=== PATIENT | male | born 1955 | race Caucasian/White ===

== ENCOUNTER 2018-09-25 14:20 | Outpatient (CLI) | payer OTHER, SELFPAY ==
[2018-09-25] VITALS (9 sets, daily range): BP systolic 92–130; BP diastolic 51–73; PULSE 62–82; RESP 16–18; TEMP 36.1; O2SAT 96–99
--- NOTE | 2018-09-25 14:23 | DI.RAD.S_ITS ---
PROCEDURE: XR LUMBAR SPINE MIN 4V INDICATIONS: lower back pain TECHNIQUE: 5 views of the lumbar spine were acquired. COMPARISON: [facility], RG, XR L-SPINE 4-6V, 09/09/2018, 15:03. FINDINGS: Bones: No fracture or focal osseous destruction. Grade 1 anterolisthesis of L5 on S1. Diffuse facet arthropathy. Trace retrolisthesis of L3 on L4. Partially visualized lateral curvature of the spine. Moderate narrowing of the L3-L4 disc space. There is mild narrowing of the L2-L3 disc space. Minimal anterior wedging of T12 which could be physiologic. Soft tissues: Overlying bowel gas pattern is normal. No suspicious soft tissue calcifications. Vascular calcifications projecting in the aorta Oblique images: No pars defects. IMPRESSION: Grade 1 anterolisthesis of L5 on S1 and mild multilevel lumbar disc degeneration with facet arthropathy. No interval change Dictated by: Aly Hopkins M.D. on 09/25/2018 at 16:29 Approved by: Aly Hopkins M.D. on 09/25/2018 at 16:31
--- NOTE | 2018-09-25 14:23 | DI.RAD.S_ITS ---
PROCEDURE: PAIN L INTERLAMINAR/CAUDAL INJ INDICATIONS: INTERVERTEBRAL DISC DISPLACEMENT FINDINGS: Fluoroscopic spot filming was performed to verify placement of spinal needles at the L3-L4 level(s), as labeled on the films. Appropriate location(s) of the needle tip(s) was confirmed by injection of iodinated contrast. Dictated by: Aly Hopkins M.D. on 09/25/2018 at 16:32 Approved by: Aly Hopkins M.D. on 09/25/2018 at 16:36
[2018-09-25] MEDS: MIDAZOLAM 5 MG/5 ML VIAL IV (15:11)
[2018-09-25] MEDS: BUPIVACAINE 0.25% (PF) VIAL 2 ML INJ (15:16)
[2018-09-25] MEDS: methylPREDNISolone acetate 80 MG/ML VIAL INJ (15:17)
[2018-09-25] MEDS: DEXAMETHASONE 10 MG/ML VIAL 20 MG INJ (15:17)
[2018-09-25] MEDS: IOPAMIDOL 15 ML VIAL 3 ML INJ (15:17)
--- NOTE | 2018-09-25 15:22 | P.PCN_ITS ---
Procedures Date/Time Date of procedure: 09/25/18 Time of procedure: 15:21 General Procedure description: POST OP DIAGNOSIS 1. HNP WITH RADICULAR FEATURES, 2. MULTILEVEL CENTRAL STENOSIS, PROCEDURES 1. FLUORSCOPICALLY GUIDED CONTRAST CONTROLLED INTERLAMINAR EPIDURAL STEROID INJECTION - L3/4 PHYSICIAN: Dennys Uribe, INDICATIONS Murphy is referred for treatment of HNP with Right LE symptoms. FINDINGS Multilevel Central Spinal Stenosis with Nerve Root Compression DESCRIPTION OF PROCEDURE Fluoroscopically guided, contrast-controlled L3/4 translaminar epidural steroid injection. Following denial of allergy and review of potential side effects and complications, including, but not necessarily limited to, infection, allergic reaction, local tissue breakdown, temporary as well as permanent nerve injury, paralysis, stroke and possible , the patient indicated that the patient understood and agreed to proceed. An informed consent document was signed by the patient, witnessed by a nurse, and placed in the patient's chart. Additionally, other treatment options including modalities, medications, and physical therapy were reviewed with the patient. After review of previous anaesthesic history and IV conscious sedation the patient was deemed safe to proceed with todays procedure with IV conscious sedation as ASA class II designation. Safety time-out was performed to confirm patient ID, procedure to be performed and site of procedure. IV sedation was accomplished with a combination of 3mg was administered by the RN after DO order , titrated to patient comfort during the course of the procedure while the patient remained responsive to all verbal commands. In the prone position, following sterile prep and drape of the lumbar region, the L3/4 translaminar space was identified fluoroscopically. The skin was anesthetized via a 25-gauge, 1.5-inch needle with 1% lidocaine solution. At this point, a 22-gauge short bevel spinal needle was atraumatically introduced and advanced under fluoroscopic guidance into the region of the L3/4 translaminar space. Depth was confirmed on lateral view. Radiological data, including multiple fluoroscopic views of the lumbar spine, reveal a spinal needle at the L3/4 translaminar space. Lateral views then show placement of the needle in the epidural space. Subsequent views show contrast material flowing superiorly and inferiorly in the epidural space. No vascular or intrathecal uptake is observed. At this point, using loss of resistance technique with saline and air, the epidural space was entered. This was confirmed following negative aspiration with injection of approximately 1.5 cc of Isovue 200, showing excellent epidural flow without vascular or intrathecal uptake. At this point, 1 cc of 1 % lidocaine solution combined with 3 cc or 20 mg of dexamethasone and 80mg Depo medrol was injected without incident. The patient tolerated the procedure well without signs or symptoms of complications prior to transfer to the recovery area continued monitoring without incident. The patient was then transferred to the recovery area where they were observed for an appropriate period of time after the injection. The patient reported a VAS score of 6 prior to the procedure and a post- procedure VAS of 0. Total Fluoroscopy Time: 11.8 seconds Total Conscious Sedation Time: 24min POST OP INSTRUCTIONS The patient was provided a Pain Log to continue to record their response to the target-specific procedure prior to follow-up visit with their referring physician. Additionally, specific post-injection care instructions and a contact number to our office were provided if concerns arise regarding possible complications associated with the procedure are suspected. Dennys Uribe, Complications: none
--- NOTE | 2018-09-25 15:36 | PC.NURSE ---
pt returned from procedure room via wheelchair, alert and oriented, able to move from w/c to chair. Resumed monitoring from Nancy VIDAL.
== END 2018-09-25 16:08 ==
PROVIDERS: Visit Provider Physical Medicine & Rehabilitation
DX: M51.16 Intervertebral disc disorders with radiculopathy, lumbar region (principal); M48.061 Spinal stenosis, lumbar region without neurogenic claudication; M47.27 Other spondylosis with radiculopathy, lumbosacral region
CPT/HCPCS: 62323; 72110; 99152; J1040; J1100; J2250

== ENCOUNTER 2018-12-11 09:42 | Outpatient (CLI) | payer OTHER, SELFPAY ==
[2018-12-11] VITALS (8 sets, daily range): BP systolic 135–147; BP diastolic 50–85; PULSE 63–77; RESP 16–18; TEMP 36.2; O2SAT 96–99
--- NOTE | 2018-12-11 09:45 | DI.RAD.S_ITS ---
PROCEDURE: PAIN L/S FACET INJ/BLK 1ST RAINA COMPARISON: None. INDICATIONS: RADICULOPATHY FINDINGS: Facet localization needles have been placed bilaterally at L4-5 and L5-S1-4 facet steroid injection. IMPRESSION: Successful bilateral lower lumbosacral spine facet needle tip localization for steroid injections bilaterally. Dictated by: Uri Ng M.D. on 12/11/2018 at 13:11 Approved by: Uri Ng M.D. on 12/11/2018 at 13:12
[2018-12-11] MEDS: MIDAZOLAM 5 MG/5 ML VIAL IV (10:39)
[2018-12-11] MEDS: fentaNYL 100 MCG/2 ML INJ 50 MCG IV (10:46)
[2018-12-11] MEDS: LIDOCAINE 1% 20 ML INJ 10 ML INJ (10:47)
[2018-12-11] MEDS: BUPIVACAINE 0.5% (PF) VIAL 2 ML INJ (10:47)
[2018-12-11] MEDS: IOPAMIDOL 15 ML VIAL 3 ML INJ (10:47)
[2018-12-11] MEDS: BETAMETHASONE 30 MG/5 ML MDV 12 MG INJ (10:48)
--- NOTE | 2018-12-11 10:51 | PC.NURSE ---
ASSISTING PT OFF TABLE AND TRANSPORTING TO POST PROC AREA IN STABLE CONDITION
--- NOTE | 2018-12-11 10:57 | P.PCN_ITS ---
Procedures Date/Time Date of procedure: 12/11/18 Time of procedure: 10:56 General Procedure description: PREOP DIAGNOSIS 1. FACET ARTHROPATHY 2. AXIAL LBP 3. MULTILEVEL DDD POST OP DIAGNOSIS 1. FACET ARTHROPATHY 2. AXIAL LBP 3. MULTILEVEL DDD PROCEDURES 1. FLUORSCOPICALLY GUIDED CONTRAST CONTROLLED FACET JOINT INJECTIONS BILATERAL L4/5, L5/S1 PHYSICIAN: Dennys Uribe, DO INDICATIONS [facility] is referred for treatment of Axial LBP FINDINGS Multilevel Facet Arthropathy with Clinically significant axial LBP DESCRIPTION OF PROCEDURE Fluoroscopically guided, contrast-controlled bilateral L4/5, L5/S1 facet joint injections. Following denial of allergy and review of potential side effects and complications, including, but not necessarily limited to, infection, allergic reaction, local tissue breakdown, stroke, temporary or permanent nerve injury, paralysis, and possible , the patient indicated that the patient understood and agreed to proceed. An informed consent document was signed by the patient, witnessed by a nurse, and placed in the patient's chart. Additionally, other treatment options including medications, modalities, and physical therapy were reviewed with the patient. After review of previous anaesthesic history and IV conscious sedation the patient was deemed safe to proceed with todays procedure with IV conscious sedation as ASA class II designation. Safety time-out was performed to confirm patient ID, procedure to be performed and site of procedure. IV sedation was accomplished with a combination of 3mg of Versed and 50mcg of Fentanyl was administered by the RN after DO order, titrated to patient comfort during the course of the procedure while the patient remained responsive to all verbal commands In the prone position, following sterile prep and drape of the lumbar region, the posterior aspect of the L4/5, L5/S1 facet joints were identified fluoroscopically. The skin was anesthetized via a 25-gauge 1.5-inch needle with 1% lidocaine solution into the corresponding facet joints. At this point, a 22- gauge 3.5-inch spinal needle was atraumatically introduced and advanced under fluoroscopic guidance into the corresponding facet joints. Following negative aspiration, injections of approximately 0.2-cc of Isovue 200 confirmed interarticular placement without vascular uptake. The identical procedure was then performed at the L4/5, L5/S1 facet joints on the left. Radiological data, including multiple fluoroscopic views of the lumbosacral spine, reveal a spinal needle at the L4/5, L5/S1 facet joints bilaterally. Subsequent views show flow of contrast material both superiorly and inferiorly within the joint space without vascular or intrathecal uptake. At this point, a total of 0.5 cc including a mixture of 0.25cc Marcaine and 0.25cc betamethasone was injected without complication into each of the corresponding facet joints. The patient tolerated the procedure well without signs or symptoms of complications prior to transfer to the recovery area continued monitoring without incident. The patient was then transferred to the recovery area where they were observed for an appropriate period of time after the injection. The patient reported a VAS score of 7 prior to the procedure and a post- procedure VAS of 0. Total Fluoroscopy Time: 20.3 seconds Total Conscious Sedation Time: 24min POST OP INSTRUCTIONS The patient was provided a Pain Log to continue to record their response to the target-specific procedure prior to follow-up visit with their referring physician. Additionally, specific post-injection care instructions and a contact number to our office were provided if concerns arise regarding possible complications associated with the procedure are suspected. Dennys Uribe, Complications: none
--- NOTE | 2018-12-11 11:11 | PC.NURSE ---
pt returned from procedure room awake and alert. Able to move from W/C to chair with standby assist. Resumed monitoring from Nancy VIDAL.
== END 2018-12-11 11:37 ==
LOC: RAD 09:43
PROVIDERS: Visit Provider Physical Medicine & Rehabilitation
DX: M47.816 Spondylosis without myelopathy or radiculopathy, lumbar region (principal); M47.817 Spondylosis without myelopathy or radiculopathy, lumbosacral region; M51.36 Other intervertebral disc degeneration, lumbar region; M51.37 Other intervertebral disc degeneration, lumbosacral region; M54.5 Low back pain
CPT/HCPCS: 64493; 64494; 99152; J0702; J2250; J3010

== ENCOUNTER 2019-02-06 13:44 | Outpatient (CLI) | payer OTHER, SELFPAY ==
[2019-02-06] VITALS (7 sets, daily range): BP systolic 123–138; BP diastolic 62–78; PULSE 59–72; RESP 16; TEMP 36.2; O2SAT 97–98
--- NOTE | 2019-02-06 13:45 | DI.RAD.S_ITS ---
PROCEDURE: PAIN L/SI FACET INJ/BLK 1STL INDICATIONS: RADICULOPATHY FINDINGS: Fluoroscopic spot filming was performed to verify placement of spinal needles at the level(s) as labeled on the films. Appropriate location(s) of the needle tip(s) was confirmed by injection of iodinated contrast. IMPRESSION: Fluoroscopy for pain management. Dictated by: Luann Castillo M.D. on 02/06/2019 at 16:40 Approved by: Luann Castillo M.D. on 02/06/2019 at 16:40
[2019-02-06] MEDS: MIDAZOLAM 5 MG/5 ML VIAL IV (14:52)
[2019-02-06] MEDS: IOPAMIDOL 15 ML VIAL 3 ML INJ (14:53)
[2019-02-06] MEDS: BUPIVACAINE 0.5% (PF) VIAL 2 ML INJ (14:53)
[2019-02-06] MEDS: BETAMETHASONE 30 MG/5 ML MDV 12 MG INJ (14:54)
[2019-02-06] MEDS: LIDOCAINE 1% 20 ML INJ 10 ML INJ (14:54)
--- NOTE | 2019-02-06 15:02 | PC.NURSE ---
Pt tolerated procedure well. Able to get off the table with standby assist. Transferred pt to pre procedure room awake and alert via wheelchair for continued monitoring with Nancy VIDAL.
--- NOTE | 2019-02-06 15:04 | PM.PROC.1 ---
Procedures Date/Time Date of procedure: 02/06/19 Time of procedure: 15:04 General Procedure description: POST OP DIAGNOSIS 1. FACET ARTHROPATHY PROCEDURES 1. Right L4, L5 and S1 MB BLOCKS PHYSICIAN: DO REBECCA Reid [facility] is referred for treatment of Right Axial LBP. DESCRIPTION OF PROCEDURE Fluoroscopically guided, contrast-controlled right L4, L5 and S1 medial branch blocks with 0.5cc of 0.5% Marcaine. Following review of allergy and review of potential side effects and complications, including, but not necessarily limited to, infection, allergic reaction, local tissue breakdown, nerve injury, paralysis, stroke and possible , the patient indicated that the patient understood and agreed to proceed. An informed consent document was signed by the patient, witnessed by a nurse, and placed in the patient's chart. After review of previous anaesthesic history and IV conscious sedation the patient was deemed safe to proceed with todays procedure with IV conscious sedation as ASA class II designation. Safety time-out was performed to confirm patient ID, procedure to be performed and site of procedure. IV sedation was accomplished with a combination of 2mg of Versed was administered by the RN after DO order, titrated to patient comfort during the course of the procedure while the patient remained responsive to all verbal commands In the prone position, following sterile prep and drape of the lumbar region, the right L4, L5 and S1 anatomical location of the medial branch of the dorsal ramus was identified fluoroscopically. Subsequently an anesthetic skin wheal using 1% lidocaine solution was initiated at each of the anatomical spots. Subsequently then a 22-gauge 3.5-inch spinal needle was atraumatically introduced and advanced under fluoroscopic guidance at each of the corresponding sites at the right L4, L5 and S1 MB. After negative aspiration, 0.2 cc of Isovue 200 was injected, confirming placement without vascular or intrathecal uptake. Subsequently then 0.5 cc of 0.5% Marcaine solution was injected at each of the corresponding sites at the right L4, L5 and S1 medial branch locations. The patient tolerated the procedure well without signs or symptoms of complications. The procedure tolerated the procedure well without signs or symptoms of complications prior to transfer to the recovery area continued monitoring without incident. Post-procedure, the patient was monitored initiating provocative activities to measure the amount of relief from block of the facetogenic pain. The patient reported a VAS of 7 prior to the procedure and a post-procedure VAS of 1. It has been a pleasure to assist in the diagnostic and therapeutic care of your patient. Total Fluoroscopy Time: 24.8 seconds Total Conscious Sedation Time: 24min POST OP INSTRUCTIONS The patient was provided with a Pain Log to complete over the next several hours and subsequent days prior to the patient's follow up with the ordering physician. If the patient has servomechanism designer relief to the solution applied, then they may be a candidate for medial branch rhizotomy. The patient is aware, was provided, once again, with a Pain Log and will follow up with the referring physician for review and clinical correlation Dennys Uribe DO Complications: none
--- NOTE | 2019-02-06 15:17 | PC.NURSE ---
ACCEPTED CARE OF PT IN POST PROC AREA IN STABLE CONDITION
== END 2019-02-06 16:07 | disposition home or self-care (01) ==
LOC: RAD 13:45
PROVIDERS: Visit Provider Physical Medicine & Rehabilitation
DX: M47.816 Spondylosis without myelopathy or radiculopathy, lumbar region (principal); M47.817 Spondylosis without myelopathy or radiculopathy, lumbosacral region
CPT/HCPCS: 64493; 64494; 99152; J0702; J2250; J3010

== ENCOUNTER 2019-07-03 07:24 | Outpatient (CLI) | payer OTHER, SELFPAY ==
[2019-07-03] VITALS (10 sets, daily range): BP systolic 118–159; BP diastolic 51–84; PULSE 57–77; RESP 16; TEMP 36.1; O2SAT 96–99
--- NOTE | 2019-07-03 08:06 | DI.RAD.S_ITS ---
PROCEDURE: PAIN L/S MED/LAT N RFA INDICATIONS: RADICULOPATHY FINDINGS: Fluoroscopic spot filming was performed to verify placement of spinal needles at the L4, L5, S1 level(s), as labeled on the films. Appropriate location(s) of the needle tip(s) was confirmed by injection of iodinated contrast. Dictated by: Aly Hopkins M.D. on 07/03/2019 at 10:33 Approved by: Aly Hopkins M.D. on 07/03/2019 at 10:33
[2019-07-03] MEDS: MIDAZOLAM 5 MG/5 ML VIAL IV (08:51)
[2019-07-03] MEDS: fentaNYL 100 MCG/2 ML INJ 50 MCG IV (08:52)
[2019-07-03] MEDS: LIDOCAINE 1% 20 ML 10 ML INJ (09:00)
[2019-07-03] MEDS: BUPIVACAINE 0.5% (PF) VIAL 2 ML INJ (09:00)
[2019-07-03] MEDS: BETAMETHASONE 30 MG/5 ML MDV 12 MG INJ (09:01)
--- NOTE | 2019-07-03 09:08 | PC.NURSE ---
ASSISTING PT OFF TABLE AND TRANSPORTING TO POST PROC AREA IN STABLE CONDITION.
--- NOTE | 2019-07-03 09:16 | P.PCN_ITS ---
Procedures Date/Time Date of procedure: 07/03/19 Time of procedure: 09:16 General Procedure description: PREOP DIAGNOSIS 1. RECALCITRANT FACET ARTHROPATHY, POST OP DIAGNOSIS 1. RECALCITRANT FACET ARTHROPATHY, PROCEDURES 1. RIGHT L4 AND L5 MEDIAL BRANCH RADIOFREQUENCY NEUROTOMY AND RIGHT S1 DORSAL RAMUS BRANCH RADIOFREQUENCY NEUROTOMY SURGEON: Dennys Uribe, DO FERNANDEZ Murphy is referred by for treatment of facet arthropathy. DESCRIPTION OF PROCEDURE Right L4 and L5 medial branch radiofrequency neurotomy and right S1 dorsal ramus branch radiofrequency neurotomy under fluoroscopy with conscious sedation. The patient is well known to this clinic having undergone previous facet injections with good but temporary relief. The patient has experienced appropriate, concordant relief with previous facet and median branch blocks but the patient's pain has been recalcitrant to further conservative measures. Therefore, based upon the patient's relief and persistent symptoms, the patient is considered an appropriate candidate for facet rhizotomy. All of the patient's questions regarding the risks versus benefits of the procedure, including, but not limited to, bleeding, infection, temporary as well as lasting nerve injury, paralysis, stroke, and , as well treatment alternatives were answered to satisfaction. After review of previous anaesthesic history and IV conscious sedation the patient was deemed safe to proceed with todays procedure with IV conscious sedation as ASA class II designation. Safety time-out was performed to confirm patient ID, procedure to be performed and site of procedure. IV sedation was accomplished with a combination of 3mg of Versed and 50mcg of Fentanyl was administered by the RN after DO order, titrated to patient comfort during the course of the procedure while the patient remained responsive to all verbal commands. After obtaining informed consent, denial of pertinent drug allergies, as well as being made aware of the potential risks of bleeding, infection, spinal cord trauma, paralysis, temporary and permanent nerve damage, seizure, stroke, and possible , the patient was brought to the fluoroscopy suite and positioned prone on the fluoroscopy table. The lumbar region was prepped with Betadine and covered with a fenestrated drape in the usual sterile fashion. Appropriate monitors applied including pulse oximeter, pulse, and blood pressure for regular monitoring throughout the procedure. After local infiltration using 1% lidocaine, under fluoroscopic guidance, a 10- cm RF insulated needle with a 10-mm active tip was positioned parallel to the junction of the right sacral ala and the superior articulating process where the S1 dorsal ramus resides. Needle placement was confirmed with sensory stimulation at 50 Hz, with motor stimulation of .5v on the right which produced local stimulation without radicular component. The stimulation was then increased to 1.5v with, once again, only local multifidus stimulation without radicular component. This was then followed by two discreet lesions performed at 80 degrees Celsius for 90 seconds each. The needle was then removed and the identical procedure was performed along the length of the right L5 medial branch with motor stimulation at .7v on the right. The identical procedure was once again performed along the length of the right L4 medial branch with motor stimulation of .5v on the right. The patient tolerated the procedure well without signs or symptoms of complications prior to transfer to the recovery area continued monitoring without incident. The patient was then transferred to the recovery area where they were observed for an appropriate period of time after the injection. The patient was then transferred to the recovery area where they were observed for an appropriate period of time after the injection. The patient reported a VAS score of 9 prior to the procedure and a post- procedure VAS of 0. Total Fluoroscopy Time: 31 seconds Total Conscious Sedation Time: 45min POST OP INSTRUCTIONS The patient was provided a Pain Log to continue to record the patient's response to the target-specific procedure prior to the patient's follow-up visit with the referring physician. Additionally, specific post-injection care instructions and a contact number to our office were provided if concerns arise regarding possible complications associated with the procedure are suspected. Dennys Uribe DO Complications: none
== END 2019-07-03 09:40 ==
PROVIDERS: Visit Provider Physical Medicine & Rehabilitation
DX: M47.817 Spondylosis without myelopathy or radiculopathy, lumbosacral region (principal); M47.816 Spondylosis without myelopathy or radiculopathy, lumbar region
CPT/HCPCS: 64494; 64635; 64636; 99152; J0702; J2250; J3010

== ENCOUNTER → 2019-11-11 08:40 | Outpatient (CLI) | payer OTHER, SELFPAY ==
--- NOTE | 2019-11-11 08:41 | DI.RAD.S_ITS ---
PROCEDURE: XR CERVICAL SPINE 4V OR 5V INDICATIONS: RUE parsthesias TECHNIQUE: 5 total views of the cervical spine were acquired, including bilateral oblique views. COMPARISON: None. FINDINGS: Bones: No fractures or dislocations to the superior T2 level. There is straightening of the normal cervical lordosis. There is moderate disc space narrowing at C5-C6 and moderate to severe disc space narrowing at C6-C7. Endplate irregularity and sclerosis are seen can be seen, which is worst at the C6-C7 level. Partially bridging anterior osteophytes are seen at C6-C7. On oblique images, there is moderate to severe neural foraminal narrowing seen on the left at the C3-C4 and C6-C7 levels, with mild neural foraminal narrowing seen elsewhere. On the right, there is moderate to severe neural foraminal narrowing seen at C3-C4 and C5-C6, with moderate disc space narrowing at C6-C7. Soft tissues: No prevertebral soft tissue swelling. The visualized lung apices are unremarkable. IMPRESSION: Cervical spine degenerative changes are seen, which are worst at the C6-C7 level. Dictated by: Christiano Manzo M.D. on 11/11/2019 at 8:28 Approved by: Christiano Manzo M.D. on 11/11/2019 at 8:31
== END ==
PROVIDERS: Visit Provider Physical Medicine & Rehabilitation
DX: M47.22 Other spondylosis with radiculopathy, cervical region (principal); R20.2 Paresthesia of skin
CPT/HCPCS: 72050

== ENCOUNTER → 2020-05-15 09:08 | Outpatient (CLI) | payer OTHER, SELFPAY ==
[2020-05-16 15:44] LABS: COVID19 Sendout Not Detected (Not Detect)
== END ==
PROVIDERS: Visit Provider Physician Assistant
DX: Z11.59 Encounter for screening for other viral diseases (principal)
CPT/HCPCS: 87635

== ENCOUNTER 2020-05-18 14:25 | Outpatient (CLI) | payer OTHER, SELFPAY ==
[2020-05-18] VITALS (8 sets, daily range): BP systolic 119–171; BP diastolic 74–92; PULSE 69–76; RESP 12–18; TEMP 36.3; O2SAT 97–100
--- NOTE | 2020-05-18 14:27 | DI.RAD.S_ITS ---
PROCEDURE: PAIN C/T INTERLAMINAR INJECT INDICATIONS: CERVICAL RADICULOPATHY COMPARISON: [facility], CR, XR CERVICAL SPINE 4V OR 5V, 11/11/2019, 8:39. [facility], [facility], MRI C-SPINE W/O CONTRAST, 03/12/2020, 15:46. FINDINGS: Fluoroscopic spot filming was performed to verify placement of a spinal needle at the C6-7 level, as labeled on the films. Appropriate location(s) of the needle tip(s) was confirmed by injection of iodinated contrast. IMPRESSION: Intraprocedural examination within normal limits. Dictated by: Christiano Manzo M.D. on 05/19/2020 at 8:40 Approved by: Christiano Manzo M.D. on 05/19/2020 at 8:41
[2020-05-18] MEDS: MIDAZOLAM 5 MG/5 ML VIAL IV (15:01)
[2020-05-18] MEDS: fentaNYL 100 MCG/2 ML INJ 50 MCG IV (15:01)
[2020-05-18] MEDS: IOPAMIDOL 15 ML VIAL 3 ML INJ (15:05)
[2020-05-18] MEDS: BUPIVACAINE 0.25% (PF) VIAL 2 ML INJ (15:05)
[2020-05-18] MEDS: DEXAMETHASONE 10 MG/ML VIAL 30 MG INJ (15:05)
--- NOTE | 2020-05-18 15:22 | P.PCN_ITS ---
Date/Time/Diagnoses Date of procedure: 05/18/20 Time of procedure: 15:22 Pre-procedure diagnosis: 1. CERVICAL STENOSIS, 2. CERVICAL HNP WITH UPPER EXTREMITY RADICULAR FEATURES Post-procedure diagnosis: same Procedure Notes Procedure: 1. FLUORSCOPICALLY GUIDED CONTRAST CONTROLLED INTERLAMINAR EPIDURAL STEROID INJECTION - C6/7 TL IRENE Indications: Murphy is referred by for treatment of Cervical HNP with Upper Extremity Paresthesias. Physician: Dennys Uribe Total Fluoroscopy time (seconds): 15 Total sedation minutes: 15 Complications: none Procedure in detail & Post-procedure care: FINDINGS Cervical Stenosis due to disc deterioration and nerve root irritation and nerve root irritation DESCRIPTION OF PROCEDURE Fluoroscopically guided, contrast-controlled C6/7 translaminar epidural steroid injection with conscious sedation. Following review of allergy and review of potential side effects and complications, including, but not necessarily limited to, infection, allergic reaction, local tissue breakdown, temporary as well as permanent nerve injury, stroke, paralysis, and possible , the patient indicated that patient understood and agreed to proceed. An informed consent document was signed by the patient, witnessed by a nurse, and placed in the patient's chart. Additionally, other treatment options including modalities, medications, and physical therapy were reviewed with the patient. After review of previous anaesthesic history and IV conscious sedation the patient was deemed safe to proceed with today?s procedure with IV conscious sedation as ASA class II designation. Safety time-out was performed to confirm patient ID, procedure to be performed and site of procedure. IV sedation was accomplished with a combination of 2mg of Versed and 50mcg of Fentanyl administered by the RN after DO order, titrated to patient comfort during the course of the procedure while the patient remained responsive to all verbal commands. In the prone position, following sterile prep and drape of the cervical region, the C6/7 translaminar space was identified fluoroscopically. The skin was anesthetized via a 25-gauge 1.5-inch needle with 1% lidocaine solution. At this point, a 25-gauge, 2.5-inch short bevel spinal needle was atraumatically introduced and advanced under fluoroscopic guidance into epidural space at the C6/7 translaminar space. Depth was confirmed on lateral view. Radiological data, including multiple fluoroscopic views of the cervical spine, reveal a spinal needle at the C6/7 translaminar space. Lateral views then show placement of the needle in the epidural space. Subsequent views show contrast material flowing superiorly and inferiorly in the epidural space. DSA fluoroscopy with live contrast injection, once again, confirmed no vascular or intrathecal uptake. At this point, using loss of resistance technique with saline and air, the epidural space was entered. Following negative aspiration, injection of yue roximately 1.5 cc of Isovue-200 with live fluoroscopy in the AP view confirmed epidural flow in the epidural space without vascular or intrathecal uptake observed. Subsequently, a test dose of 1 cc of 1% lidocaine solution was injected and patient was observed for two minutes without signs or symptoms of complications, including abdominal pain, shortness of breath, bilateral upper or lower extremity weakness, nausea and vomiting, prior to steroid injection. At this point, 3cc or 30mg of dexamethasone was then injected without incident. The patient tolerated the procedure well without signs or symptoms of complications prior to being transferred to the recovery area for further monitoring, The patient was then transferred to the recovery area where they were observed for an appropriate period of time after the injection. The patient reported a VAS score of 6 prior to the procedure and a post-procedure VAS of 0. POST OP INSTRUCTIONS The patient was provided a Pain Log to continue to record their response to the target-specific procedure prior to follow-up visit with the referring provider. Additionally, specific post-injection care instructions and a contact number to our office were provided if concerns arise regarding possible complications associated with the procedure are suspected.
--- NOTE | 2020-05-18 15:46 | PC.NURSE ---
Patient recovered by YOUNG Hunt.
== END 2020-05-18 15:41 | disposition home or self-care (01) ==
PROVIDERS: PCP Chiropractor; Referring Provider Physical Medicine & Rehabilitation; Visit Provider Physical Medicine & Rehabilitation
DX: M48.02 Spinal stenosis, cervical region (principal); M50.123 Cervical disc disorder at C6-C7 level with radiculopathy
CPT/HCPCS: 62321; 99152; J1100; J2250; J3010

== ENCOUNTER → 2020-08-30 15:17 | Outpatient (CLI) | payer OTHER, SELFPAY ==
[2020-08-30 16:26] LABS: COVID19 -Nasal RAPID Negative (Negative)
== END ==
PROVIDERS: PCP Chiropractor; Visit Provider Physical Medicine & Rehabilitation
DX: Z01.812 Encounter for preprocedural laboratory examination (principal); Z20.822 Contact with and (suspected) exposure to COVID-19
CPT/HCPCS: 87635; C9803

== ENCOUNTER 2020-08-31 10:07 | Outpatient (CLI) | payer OTHER, SELFPAY ==
[2020-08-31] VITALS (9 sets, daily range): BP systolic 124–175; BP diastolic 62–96; PULSE 78–97; RESP 12–29; TEMP 36; O2SAT 92–99
--- NOTE | 2020-08-31 10:08 | DI.RAD.S_ITS ---
PROCEDURE: PAIN L/S TRANSFORAMINAL INJECT INDICATIONS: SPONDYLOSIS COMPARISON: Outside Facility, RG, IR TRANSFORAMINAL EPIDURAL / INJ, 08/23/2020, 16:02. FINDINGS: Fluoroscopic spot filming was performed to verify placement of a spinal needle at the L4-L5 level, as labeled on the films. Appropriate location of the needle tip was confirmed by injection of iodinated contrast. IMPRESSION: Intraprocedural examination within normal limits. Dictated by: Christiano Manzo M.D. on 08/31/2020 at 11:23 Approved by: Christiano Manzo M.D. on 08/31/2020 at 11:23
[2020-08-31] MEDS: fentaNYL 100 MCG/2 ML INJ 50 MCG IV (10:55)
[2020-08-31] MEDS: MIDAZOLAM 5 MG/5 ML VIAL IV (10:55)
[2020-08-31] MEDS: DEXAMETHASONE 10 MG/ML VIAL 20 MG INJ (11:05)
[2020-08-31] MEDS: IOPAMIDOL 15 ML VIAL 3 ML INJ (11:06)
[2020-08-31] MEDS: BETAMETHASONE 30 MG/5 ML MDV 6 MG INJ (11:06)
[2020-08-31] MEDS: BUPIVACAINE 0.25% (PF) VIAL 2 ML INJ (11:06)
--- NOTE | 2020-08-31 11:15 | P.PCN_ITS ---
Date/Time/Diagnoses Date of procedure: 08/31/20 Time of procedure: 11:15 Pre-procedure diagnosis: 1. FORAMINAL STENOSIS WITH LE SYMPTOMS Post-procedure diagnosis: same Procedure Notes Procedure: 1. FLUOROSCOPICALLY GUIDED CONTRAST CONTROLLED TRANSFORAMINAL EPIDURAL STEROID INJECTION - RIGHT L4/5 TFESI Indications: Murphy is referred by Dr. Griffin WICK for treatment of HNP with Right LE Symptoms Physician: Dennys Uribe Total Fluoroscopy time (seconds): 8 Total sedation minutes: 14 Complications: none Procedure in detail & Post-procedure care: FINDINGS Foraminal Nerve Root Compression secondary to disc disease and facet hypertrophy DESCRIPTION OF PROCEDURE Following review of allergy and review of potential side effects and complications, including, but not necessarily limited to, infection, allergic reaction, local tissue breakdown, stroke, temporary or permanent nerve injury, paralysis, and possible , the patient indicated that the patient understood and agreed to proceed. An informed consent document was signed by the patient, witnessed by a nurse, and placed in the patient's chart. Additionally, other treatment options including medications, modalities, and physical therapy were reviewed with the patient. After review of previous anaesthesic history and IV conscious sedation the patient was deemed safe to proceed with today?s procedure with IV conscious sedation as ASA class II designation. Safety time-out was performed to confirm patient ID, procedure to be performed and site of procedure. IV sedation was accomplished with a combination of 3mg of Versed and 50mcg of Fentanyl was administered by the RN after DO order, titrated to patient comfort during the course of the procedure while the patient remained responsive to all verbal commands In the prone position following sterile prep and drape of the lumbar region, the Right L4/5 posterior neuroforamen was identified fluoroscopically. The skin was anesthetized via a 25-gauge 1.5-inch needle with 1% lidocaine solution. At this point, a 25-gauge 3.5-inch spinal needle was atraumatically introduced and advanced under fluoroscopic guidance through the posterior Right L4/5 neuroforam en to approximately the anterior aspect of the canal. Depth was confirmed on lateral view. Following negative aspiration, injection of approximately 1.5cc of Isovue 200 under live fluoroscopy in the AP view confirmed excellent flow along the nerve root, into the epidural space without vascular or intrathecal uptake observed Radiological data, including multiple fluoroscopic views of the lumbosacral spine, reveal a spinal needle at the right L4/5 posterior neuroforamen. Subsequent views show flow of contrast material flowing superiorly and inferiorly along the nerve root confirming epidural flow. Subsequently, a test dose of 1.5 cc of 1% lidocaine solution was administered and patient was observed for two minutes for signs or symptoms of complications, including abdominal pain, shortness of breath, bilateral upper or lower extremity weakness, nausea and vomiting, prior to steroid injection. At this point, a total of 5cc or 20mg of dexamethasone and 18mg of betamethasone was in jected without incident. The procedure tolerated the procedure well without signs or symptoms of complications prior to transfer to the recovery area continued monitoring without incident. The patient was then transferred to the recovery area where they were observed for an appropriate time after the injection. The patient reported a VAS score of 9 prior to the procedure and a post-procedure VAS of 4. POST OP INSTRUCTIONS The patient was provided a Pain Log to continue to record their response to the target-specific procedure prior to follow-up visit with their referring physician. Additionally, specific post-injection care instructions and a contact number to our office were provided if concerns arise regarding possible complications associated with the procedure are suspected.
--- NOTE | 2020-08-31 11:46 | PC.NURSE ---
Pt had half empty water bottle in hand in waiting area. Dr Uribe notified. Pt unable to commit to amount of water consumed despite pre-procedure phone call asking pt to refrain from eating/drinking 2 hours prior to procedure.,
== END 2020-08-31 11:40 | disposition home or self-care (01) ==
LOC: RAD 10:08
PROVIDERS: PCP Chiropractor; Referring Provider Physical Medicine & Rehabilitation; Visit Provider Physical Medicine & Rehabilitation
DX: M48.061 Spinal stenosis, lumbar region without neurogenic claudication (principal); M51.16 Intervertebral disc disorders with radiculopathy, lumbar region
CPT/HCPCS: 64483; 99152; J0702; J1100; J2250; J3010

== ENCOUNTER → 2020-09-13 13:43 | Outpatient (CLI) | payer OTHER, SELFPAY ==
[2020-09-13 14:34] LABS: COVID19 -Nasal RAPID Negative (Negative)
== END ==
PROVIDERS: PCP Chiropractor; Visit Provider Physical Medicine & Rehabilitation
DX: Z01.812 Encounter for preprocedural laboratory examination (principal); Z20.822 Contact with and (suspected) exposure to COVID-19
CPT/HCPCS: 87635; C9803

== ENCOUNTER 2020-09-14 12:48 | Outpatient (CLI) | payer OTHER, SELFPAY ==
[2020-09-14] VITALS (8 sets, daily range): BP systolic 124–162; BP diastolic 66–94; PULSE 86–109; RESP 15–18; TEMP 36.6; O2SAT 96–99
--- NOTE | 2020-09-14 12:49 | DI.RAD.S_ITS ---
PROCEDURE: PAIN L INTERLAMINAR/CAUDAL INJ INDICATIONS: SPONDYLOSIS COMPARISON: [facility], XA, PAIN L INTERLAMINAR/CAUDAL INJ, 09/25/2018, 15:13. FINDINGS: Fluoroscopic spot filming was performed to verify placement of a spinal needle at the L4-L5 level, as labeled on the films. Appropriate location of the needle tip was confirmed by injection of iodinated contrast. IMPRESSION: Intraprocedural examination within normal limits. Dictated by: Christiano Manzo M.D. on 09/14/2020 at 13:45 Approved by: Christiano Manzo M.D. on 09/14/2020 at 13:46
[2020-09-14] MEDS: fentaNYL 100 MCG/2 ML INJ 50 MCG IV (13:46)
[2020-09-14] MEDS: MIDAZOLAM 5 MG/5 ML VIAL IV (13:46)
[2020-09-14] MEDS: methylPREDNISolone acetate 80 MG/ML VIAL INJ (13:52)
[2020-09-14] MEDS: IOPAMIDOL 15 ML VIAL 3 ML INJ (13:52)
[2020-09-14] MEDS: DEXAMETHASONE 10 MG/ML VIAL 20 MG INJ (13:52)
[2020-09-14] MEDS: BUPIVACAINE 0.5% (PF) VIAL 2 ML INJ (13:53)
--- NOTE | 2020-09-14 13:55 | P.PCN_ITS ---
Date/Time/Diagnoses Date of procedure: 09/14/20 Time of procedure: 13:55 Pre-procedure diagnosis: 1. HNP WITH RADICULAR FEATURES, 2. MULTILEVEL CENTRAL STENOSIS, Post-procedure diagnosis: same Procedure Notes Procedure: 1. FLUOROSCOPICALLY GUIDED CONTRAST CONTROLLED INTERLAMINAR EPIDURAL STEROID INJECTION - PARA RIGHT L4/5 Indications: Murphy is referred by Griffin WICK for treatment of Bilateral Foraminal Stenosis R>L LE symptoms. Physician: Dennys Uribe Total Fluoroscopy time (seconds): 4 Total sedation minutes: 7 Complications: none Procedure in detail & Post-procedure care: FINDINGS Multilevel Central Spinal Stenosis with Nerve Root Compression DESCRIPTION OF PROCEDURE Fluoroscopically guided, contrast-controlled L4/5 translaminar epidural steroid injection. Following review of allergy and review of potential side effects and complications, including, but not necessarily limited to, infection, allergic reaction, local tissue breakdown, temporary as well as permanent nerve injury, paralysis, stroke and possible , the patient indicated that the patient understood and agreed to proceed. An informed consent document was signed by the patient, witnessed by a nurse, and placed in the patient's chart. Additionally, other treatment options including modalities, medications, and physical therapy were reviewed with the patient. After review of previous anaesthesic history and IV conscious sedation the patient was deemed safe to proceed with today?s procedure with IV conscious sedation as ASA class II designation. Safety time-out was performed to confirm patient ID, procedure to be performed and site of procedure. IV sedation was accomplished with a combination of 2mg of Versed and 50mcg of Fentanyl was administered by the RN after DO order, titrated to patient comfort during the course of the procedure while the patient remained responsive to all verbal commands In the prone position, following sterile prep and drape of the lumbar region, t he L4/5 translaminar space was identified fluoroscopically. The skin was anesthetized via a 25-gauge, 1.5inch needle with 1% lidocaine solution. At this point, a 22-gauge short bevel spinal needle was atraumatically introduced and advanced under fluoroscopic guidance into the region of the L4/5 translaminar space. Depth was confirmed on lateral view. Radiological data, including multiple fluoroscopic views of the lumbar spine, reveal a spinal needle at the L4/5 translaminar space. Lateral views then show placement of the needle in the epidural space. Subsequent views show contrast material flowing superiorly and inferiorly in the epidural space. No vascular or intrathecal uptake is observed. At this point, using loss of resistance technique with saline and air, the epidural space was entered. This was confirmed following negative aspiration with injection of approximately 1.5cc of Isovue 200, showing excellent epidural flow without vascular or intrathecal uptake. At this point, 1cc of 1% lidocaine solution combined with 3cc or 20mg of dexamethasone and 80mg DepoMedrol was injected without incident. The patient tolerated the procedure well without signs or symptoms of complications prior to transfer to the recovery area continued monitoring without incident. The patient was then transferred to the recovery area where they were observed for an appropriate period of time after the injection. The patient reported a VAS score of 6 prior to the procedure and a post- procedure VAS of 0. POST OP INSTRUCTIONS The patient was provided a Pain Log to continue to record their response to the target-specific procedure prior to follow-up visit with their referring physician. Additionally, specific post-injection care instructions and a contact number to our office were provided if concerns arise regarding possible complications associated with the procedure are suspected.
== END 2020-09-14 14:30 | disposition home or self-care (01) ==
PROVIDERS: PCP Chiropractor; Referring Provider Physical Medicine & Rehabilitation; Visit Provider Physical Medicine & Rehabilitation
DX: M51.16 Intervertebral disc disorders with radiculopathy, lumbar region (principal); M48.061 Spinal stenosis, lumbar region without neurogenic claudication
CPT/HCPCS: 62323; 99152; J1040; J1100; J2250; J3010

== ENCOUNTER → 2020-09-20 15:22 | Outpatient (CLI) | payer OTHER, SELFPAY ==
[2020-09-20 16:40] LABS: COVID19 -Nasal RAPID Negative (Negative)
== END ==
PROVIDERS: PCP Chiropractor; Visit Provider Physician Assistant
DX: Z20.822 Contact with and (suspected) exposure to COVID-19 (principal)
CPT/HCPCS: 87635

== ENCOUNTER 2020-09-23 08:22 | Day surgery (SDC) | payer OTHER, SELFPAY ==
[2020-09-23] VITALS (15 sets, daily range): BP systolic 86–161; BP diastolic 51–93; PULSE 64–90; RESP 8–16; TEMP 35.9–36.4; O2SAT 93–98; BMI 27.1
--- NOTE | 2020-09-23 08:52 | PM.PREOP ---
Pre-operative Note COVID-19 COVID-19 status: Negative Result date/Date tested (Pos, Neg/Pending): 09/20/20 Interval Note History & Physical reviewed/Exam performed by Physician: Yes Changes to H&P: No
[2020-09-23] MEDS: LACTATED RINGERS 1,000 ML 42 ML IV ×2 (09:03→11:22)
[2020-09-23] MEDS: CEFAZOLIN 2 GM/100 ML FROZ.PIGGY IV (09:45)
--- NOTE | 2020-09-23 09:45 | DI.RAD.S_ITS ---
PROCEDURE: XR LUMBAR SPINE 2-3V INDICATIONS: L4-5 MICRODISCECTOMY TECHNIQUE: 2 views of the lumbar spine were acquired. COMPARISON: [facility], CR, XR LUMBAR SPINE MIN 4V, 09/25/2018, 14:34. FINDINGS: Spot fluoroscopic intraoperative images demonstrating surgical instruments in the posterior paraspinal soft tissues with the tips projecting at the level of L4-L5. Dictated by: Aly Hopkins M.D. on 09/23/2020 at 12:09 Approved by: Aly Hopkins M.D. on 09/23/2020 at 12:12
--- NOTE | 2020-09-23 09:58 | SUR.OPER ---
Prone on spine table, head in foam head support, padded chest and pelvic supports, gel pad at knees, lower legs supported by pillows; nipples, genitalia and toes free of pressure, arms secured on foam padded arm boards at <90 degrees abduction. Tape over blanket at thigh secured to table.
[2020-09-23] MEDS: THROMBIN (RECOMBINANT) 5,000 UNIT VIAL 5000 UNIT TOP (10:05)
[2020-09-23] MEDS: VANCOMYCIN 1,000 MG VIAL 1000 MG TOP (10:05)
[2020-09-23] MEDS: BUPIVACAINE 0.25% (PF) 8 ML, fentaNYL 100 MCG INJ (10:06)
[2020-09-23] MEDS: SODIUM CHLORIDE 0.9% 1,000 ML, GENTAMICIN 80 MG IRR (10:06)
--- NOTE | 2020-09-23 10:54 | PM.OP.1 ---
Operative Date/Time/Diagnoses Date of procedure: 09/23/20 Time of procedure: 10:54 Pre-op diagnosis: Lumbar disc herniation with radiculopathy Post-op diagnosis: same Procedure & Clinicians Procedure: Right far lateral L4-5 diskectomy Use of microscope Placement of epidural catheter Same procedure as scheduled: Yes Indications: [age] year old male with intractable pain from a lumbar disc herniation. They had failed conservative management and requested operative intervention. Risks and benefits of surgery were discussed and appropriate consents were obtained. Surgeon: [employer] Teacher: Breanne Marte Anesthesia Type: General Operative Notes Findings: None Closure Type: primary Specimen(s): none sent Estimated Blood Loss (mL): 10 Procedure in detail: Patient was brought to the operating room and intubated on the table. A time-out was performed. There were rolled over the well-padded prone position on the Jl table. The back was prepped and draped in standard sterile fashion. Preoperative antibiotics were given. Using fluoroscopy, a 3 cm incision was made to the well marked far right of the midline at the L4-5 level. We used Bovie to come down to and split the fascia. We then used the [employer] MaXcess dilators with fluoroscopy and then opened our retractors. The soft tissue was cleared off the edges of the L4-5 and L3-4 facets with Bovie, a marker was placed, an x-ray was taken to confirm positioning. We used the bur to remove the superior aspect of the L4-5 facet and then were able to push our retractor in deeper. We cleared out and exposed the edge of the pars. We then brought in the microscope. We found the inner transverse ligament and used a curette to remove from the edge of the pars and the facets. We peeled this out laterally. The nerve root was right underneath this and very red and swollen. We carefully retracted the nerve root medially and a large extruded fragment of disc herniation came loose and this was removed. After this we could move the ball probe back and forth and remove 1 small little extra fragment but all the pressure had been released. The nerve root was free. The wound was irrigated. An epidural catheter was filled with 100 mcg of fentanyl and 8 mL of 0.25% Marcaine. We slid the catheter up along the nerve root into the spinal canal approximately 6 cm. The retractor was removed and the fascia was closed. The epidural catheter was then injected without resistance and removed. Vancomycin powder was placed in the wound. Superficial and skin were closed. Sterile dressing was placed. The patient was then rolled over, transferred to the stretcher, and brought to recovery room without complications. Complications: none Post-operative Condition: stable Disposition: PACU Plan for aftercare: Outpatient. Limited bending, twisting, lifting for 2 weeks and then may start PT with no restrictions at that point.
[2020-09-23] MEDS: ONDANSETRON 4 MG/2 ML INJ IV (12:14)
[2020-09-23] MEDS: OXYCODONE IR 5 MG TABLET PO (12:14)
== END 2020-09-23 12:51 | disposition home or self-care (01) ==
PROVIDERS: PCP Chiropractor; Referring Provider Chiropractor; Visit Provider Orthopaedic Surgery
PROC: (CPT 63030; principal; 2020-09-23 10:00)
DX: M51.16 Intervertebral disc disorders with radiculopathy, lumbar region (principal); G47.33 Obstructive sleep apnea (adult) (pediatric)
CPT/HCPCS: 63030; 72100; 76000; 82962; J0330; J0690; J1100; J2405; J2704; J3010

== ENCOUNTER → 2021-04-13 07:32 | Outpatient (CLI) | payer OTHER, SELFPAY ==
--- NOTE | 2021-04-13 | DI.RAD.S_ITS ---
PROCEDURE: XR SHOULDER RT MIN 2V INDICATIONS: rotator cuff arthropathy TECHNIQUE: 3 views of the shoulder were acquired. COMPARISON: None. FINDINGS: Bones: No acute fracture although advanced arthritic changes limits study sensitivity. There is severe right AC joint degeneration. Scattered degenerative subchondral sclerosis and spurring. Soft tissues: Subtle calcific tendinitis. IMPRESSION: Calcific tendinitis. Right shoulder joint degeneration. Dictated by: Aly Hopkins M.D. on 04/13/2021 at 10:25 Approved by: Aly Hopkins M.D. on 04/13/2021 at 10:28
== END ==
PROVIDERS: Referring Provider Physical Medicine & Rehabilitation; Visit Provider Physical Medicine & Rehabilitation
DX: M19.011 Primary osteoarthritis, right shoulder (principal); M75.31 Calcific tendinitis of right shoulder; M51.26 Other intervertebral disc displacement, lumbar region; M54.12 Radiculopathy, cervical region
CPT/HCPCS: 20611; 73030; 99214; J0702

== ENCOUNTER 2023-01-11 13:20 | Outpatient (CLI) | payer OTHER, SELFPAY ==
[2023-01-11] VITALS (8 sets, daily range): BP systolic 113–131; BP diastolic 58–70; PULSE 60–66; RESP 18–20; TEMP 36.6; O2SAT 96–98
--- NOTE | 2023-01-11 13:21 | DI.RAD.S_ITS ---
PROCEDURE: PAIN L/S TRANSFORAMINAL INJECT INDICATIONS: SPONDYLOSIS COMPARISON: [facility], , PAIN L/S TRANSFORAMINAL INJECT, 08/31/2020, 11:00. FINDINGS: Fluoroscopic spot filming was performed to verify placement of spinal needles at the L4-5 level(s), as labeled on the films. Appropriate location(s) of the needle tip(s) was confirmed by injection of iodinated contrast. IMPRESSION: L4-5 needle placement. Dictated by: Elena Spears M.D. on 01/11/2023 at 21:23 Approved by: Elena Spears M.D. on 01/11/2023 at 21:23
[2023-01-11] MEDS: MIDAZOLAM 2 MG/2 ML VIAL 1 MG IV (14:41)
[2023-01-11] MEDS: DEXAMETHASONE 10 MG/ML VIAL 20 MG INJ (14:47)
[2023-01-11] MEDS: BUPIVACAINE 0.25% (PF) VIAL 2 ML INJ (14:47)
[2023-01-11] MEDS: IOPAMIDOL 15 ML VIAL 3 ML INJ (14:48)
[2023-01-11] MEDS: BETAMETHASONE 30 MG/5 ML MDV 6 MG INJ (14:48)
--- NOTE | 2023-01-11 15:01 | P.PCN_ITS ---
Date/Time/Diagnoses Date of procedure: 01/11/23 Time of procedure: 15:01 Pre-procedure diagnosis: 1. FORAMINAL STENOSIS WITH LE SYMPTOMS Post-procedure diagnosis: same Procedure Notes Procedure: 1. FLUOROSCOPICALLY GUIDED CONTRAST CONTROLLED TRANSFORAMINAL EPIDURAL STEROID INJECTION - RIGHT L4/5 TFESI Indications: Murphy is referred for treatment of Foraminal Stenosis with Right LE Symptoms Physician: Dennys Uribe Total Fluoroscopy time (seconds): 10 Total sedation minutes: 13 Complications: none Procedure in detail & Post-procedure care: FINDINGS Foraminal Nerve Root Compression secondary to disc disease and facet hypertrophy DESCRIPTION OF PROCEDURE Following review of allergy and review of potential side effects and complications, including, but not necessarily limited to, infection, allergic reaction, local tissue breakdown, stroke, temporary or permanent nerve injury, paralysis, and possible , the patient indicated that the patient understood and agreed to proceed. An informed consent document was signed by the patient, witnessed by a nurse, and placed in the patient's chart. Additionally, other treatment options including medications, modalities, and physical therapy were reviewed with the patient. After review of previous anaesthesic history and IV conscious sedation the patient was deemed safe to proceed with today?s procedure with IV conscious sedation as ASA class II designation. Safety time-out was performed to confirm patient ID, procedure to be performed and site of procedure. IV sedation was accomplished with a combination of 1mg of Versed was administered by the RN after DO order, titrated to patient comfort during the course of the procedure while the patient remained responsive to all verbal commands In the prone position following sterile prep and drape of the lumbar region, the right L4/5 posterior neuroforamen was identified fluoroscopically. The skin was anesthetized via a 25-gauge 1.5-inch needle with 1% lidocaine solution. At this point, a 25-gauge 3.5-inch spinal needle was atraumatically introduced and advanced under fluoroscopic guidance through the posterior right L4/5 neuroforamen to approximately the anterior aspect of the canal. Depth was confirmed on lateral view. Following negative aspiration, injection of approximately 1.5cc of Isovue 200 under live fluoroscopy in the AP view confirmed excellent flow along the nerve root, into the epidural space without vascular or intrathecal uptake observed Radiological data, including multiple fluoroscopic views of the lumbosacral spine, reveal a spinal needle at the right L4/5 posterior neuroforamen. Subsequent views show flow of contrast material flowing superiorly and inferiorly along the nerve root confirming epidural flow. Subsequently, a test dose of 1.5cc of 1% lidocaine solution was administered and patient was observed for two minutes for signs or symptoms of complications, including abdominal pain, shortness of breath, bilateral upper or lower extremity weakness, nausea and vomiting, prior to steroid injection. At this point, a total of 3cc or 20mg of dexamethasone and 6mg of betamethasone was injected without incident. The procedure tolerated the procedure well without signs or symptoms of complications prior to transfer to the recovery area continued monitoring without incident. The patient was then transferred to the recovery area where they were observed for an appropriate time after the injection. The patient reported a VAS score of 7 prior to the procedure and a post- procedure VAS of 0. POST OP INSTRUCTIONS The patient was provided a Pain Log to continue to record their response to the target-specific procedure prior to follow-up visit with their referring physician. Additionally, specific post-injection care instructions and a contact number to our office were provided if concerns arise regarding possible complications associated with the procedure are suspected.
== END 2023-01-11 15:20 | disposition home or self-care (01) ==
LOC: RAD 13:21
PROVIDERS: Referring Provider Physical Medicine & Rehabilitation; Visit Provider Physical Medicine & Rehabilitation
DX: M51.26 Other intervertebral disc displacement, lumbar region (principal); M51.16 Intervertebral disc disorders with radiculopathy, lumbar region
CPT/HCPCS: 64483; 99152; J0702; J1100; J2250; J3490